=== PATIENT | female | born 1960 | race Caucasian/White ===

== ENCOUNTER 2016-06-30 16:28 | Observation (INO) | payer OTHER, SELFPAY ==
--- NOTE | ~2016-06-30 | DS ---
Discharge Summary [facility] [address] [facility] [place]. [address] NAME: JULIO GANDHI : 62 STATUS : DIS Estella PAT#: [id number] AGE: 56 ADM/REG DATE : 06/30/16 MR#: [id number] REPORT SERV DATE: 07/04/16 DICTATED BY: BESSIE ROSENBERG DATE: 07/03/16 REPORT STATUS : Draft TRANSCRIBED BY: MODL DATE: 07/03/16 ADMISSION DATE: 06/30/2016 DISCHARGE DATE: 07/03/2016 DIAGNOSES OF DISCHARGE: 1. Left knee pain with severe degenerative joint disease, osteoarthritis, deconditioning, and inability to walk. 2. Super morbid obesity. 3. Degenerative joint disease, osteoarthritis, status post prior bilateral total knee arthroplasty. 4. Chronic venous stasis dermatitis. 5. Hypertension. 6. Diabetes type 2, noninsulin dependent, diet controlled. 7. Depression with anxiety. 8. Polycystic ovarian syndrome. 9. Obesity hypoventilation syndrome. CONSULTANTS ON THE CASE: Dr. Sebastian Herzog, Orthopedic. PROCEDURES DONE DURING THIS HOSPITALIZATION: None. TESTS DONE DURING THIS HOSPITALIZATION: Include a chest x-ray, portable, on 06/30/2016 showing cardiomegaly. No acute abnormalities. Left knee x-ray did show prosthesis in the place, but no hardware removal. Also, the patient's UA has been negative. Her white count was normal with a white blood cell count of 8.4, hemoglobin 13.3, hematocrit 42.7, and platelets were 199. Her INR was 1.1. HOSPITAL COURSE: This is a 56 years old female, patient of Dr. Juan Fuchs, her primary care provider, she has history of hypertension, degenerative joint disease, osteoarthritis, obstructive sleep apnea, morbid obesity, she is very functional, admitting to [facility] for significant deconditioning, intractable left knee pain, and inability to ambulate. Again, she has been very limited in her activities due to her significant degenerative joint disease and osteoarthritis as well as morbid obesity. There were no fractures at diagnosis. Mostly, she has been having progressive deterioration of her functional status, minimally functioning, and very limited in her daily activities. She has been admitted to Hospitalist Service. An Orthopedic consult has been placed and she has been started to work with Physical Therapy. She has been seen in consult by Dr. Sebastian Herzog from Orthopedic Service, who concluded that she is not a candidate for orthopedic intervention. Recommendation for her was nonoperative intervention, exercise, physical therapy, and inpatient rehab. On 07/03/2016, the patient has been ready to be discharged to inpatient rehab. MEDICATIONS AT DISCHARGE: Include aspirin 81 p.o. daily, Parlodel 2.5 p.o. daily, Colace 100 b.i.d., insulin sliding scale level 1, meloxicam 7.5 p.o. daily, norethindrone 15 mg p.o. daily, nystatin powder apply topically three times a day, Prilosec 20 mg p.o. daily, MiraLAX one packet in 6 ounces of fluid p.o. daily, Zoloft 100 p.o. daily, albuterol q.4 hours while Discharge Summary [address] [address] NAME: JULIO GANDHI : 62 STATUS : DIS Estella PAT#: [id number] AGE: 56 ADM/REG DATE : 06/30/16 MR#: [id number] REPORT SERV DATE: 07/04/16 DICTATED BY: BESSIE ROSENBERG DATE: 07/03/16 REPORT STATUS : Draft TRANSCRIBED BY: CHAZ DATE: 07/03/16 awake and also albuterol p.r.n. twice a day, Tylenol 650 every four hours p.r.n. clorazepate 7.5 p.o. b.i.d. p.r.n., Benadryl p.r.n. at bedtime 50 mg p.o., glucose tablets, also Zofran p.r.n., Phenergan p.r.n., Ultram 50 mg p.o. q.6 hours p.r.n., and Diovan hydrochlorothiazide 160/12.5 one tablet p.o. daily. The patient has been advised to follow up with her primary care provider in one week after discharge. The patient has been accepted to go to inpatient rehab for aggressive physical therapy. DESTINY/CHAZ Bessie Rosenberg M.D. / [id number] CC: Sary Damon M.D.
--- NOTE | ~2016-06-30 | HP ---
History And Physical [address] [place]. [address] NAME: JULIO GANDHI : 62 STATUS : ADM Estella PAT#: [id number] AGE: 56 ADM/REG DATE : 06/30/16 MR#: [id number] REPORT SERV DATE: 07/02/16 DICTATED BY: MARGARITA PETE DATE: 07/02/16 REPORT STATUS : Draft TRANSCRIBED BY: MODL DATE: 07/02/16 DATE OF ADMISSION: 06/30/2016 CHIEF COMPLAINT: Left knee pain. HISTORY: This is a morbidly obese 56-year-old female admitted for multiple medical issues including increasing left knee pain and complete debilitation. She had a left total knee in 2008 and right total knee arthroplasty [place] [address] Epstein by her account. She was nurse for about 30 years now, morbidly obese and wheelchair bound, minimally functional, was admitted with severe deconditioning, urinating, and defecating on herself, etc. She reports three falls since August and was very detailed on her account. She has again been very limited in her activities with severe pain in the knee. No specific fracture of her diagnosis, etc. ALLERGIES: PENICILLIN, CODEINE, HYDROCODONE, AND ADHESIVE TAPE. MEDICATIONS: See chart. 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 PAST SURGICAL HISTORY: Knee replacements as noted. SOCIAL HISTORY: No cigarettes, alcohol, or illicit drug use. She basically does not get out and about hardly at all. FAMILY HISTORY: Noncontributory. REVIEW OF SYSTEMS: As noted above with severe deconditioning and debilitation. PHYSICAL EXAMINATION: GENERAL: She is morbidly obese. HEENT: Atraumatic and normocephalic. NECK: Supple. CHEST: Grossly appears symmetric. CV AND LUNG: Evaluation per Medicine. EXTREMITIES: Both upper extremities without acute trauma. Both lower extremities with severe super obesity in both thighs. Chronic venous stasis dermatitis. 1+ DP pulses. Moderate varus deformities. Extremely limited range of motion with pain, but also limited just due to the soft tissue size. She appears to be neurologically intact in both feet, sensory and motor. DIAGNOSTIC DATA: X-ray of the left knee reveals varus changes with severe poly wear. ASSESSMENT: Bilateral total knee arthroplasty, super morbid obesity, deconditioning, left varus wear in the knee. History And Physical [address] [place] [place]. [address] NAME: JULIO GANDHI : 62 STATUS : ADM Estella PAT#: [id number] AGE: 56 ADM/REG DATE : 06/30/16 MR#: [id number] REPORT SERV DATE: 07/02/16 DICTATED BY: MARGARITA PETE DATE: 07/02/16 REPORT STATUS : Draft TRANSCRIBED BY: CHAZ DATE: 07/02/16 PLAN: She is not a candidate for orthopedic intervention with her chronic yeast infections and super morbid obesity. I discussed with her I do not think a brace would help her either as it would have to be a custom brace and I was afraid it would cause her further skin irritation. We had a very lengthy discussion about nonoperative intervention, exercise, etc. I will be available to see her at some point in the future if her condition improves. She described in great detail how she is already plugged in with the Bariatric Services here. IBRAHIMAB/CHAZ Cyndy Pete M.D. / [id number] CC: Sary Damon M.D.
--- NOTE | ~2016-06-30 | HP ---
History And Physical [id number] [facility] [place]. [address] NAME: JULIO GANDHI : 62 STATUS : ADM Estella PAT#: [id number] AGE: 56 ADM/REG DATE : 06/30/16 MR#: [id number] REPORT SERV DATE: 07/01/16 DICTATED BY: FERNY PORRAS DATE: 06/30/16 REPORT STATUS : Draft TRANSCRIBED BY: MODL DATE: 06/30/16 DATE OF ADMISSION: 06/30/2016 CHIEF COMPLAINT: Failure to thrive. HISTORY OF PRESENT ILLNESS: This is a 56-year-old lady with super morbid obesity presenting with a failure to thrive. The patient has apparently been going from one ER to another ER because the patient has developed left knee pain that prevented her from being able to get up. The patient does have history of osteoarthritis and has had bilateral knee replacements. The patient reports that some time ago it buckling on her and she was really not able to ambulate. The patient is actually scheduled to see an orthopedist in three days on 07/03/2016. Unfortunately in the meantime, the patient has not been able to get up and go use the bathroom and thus she has been basically defecating and urinating on herself. The patient is super morbidly obese, and although at baseline the patient is able to get around with a walker with some help of her boyfriend, her boyfriend was not able to help her much because he is going through an illness himself too. The patient was seen at different ERs, and she would get discharged home. The patient now has developed a yeast infection in her skin folds from not being able to keep her skin folds clean. The patient came to our ER yet again for another evaluation. In the ER, the patient was found to be afebrile and hemodynamically stable. Initial lab evaluation was all completely benign with normal white blood cell count, normal renal function, normal electrolytes, and normal LFTs. Chest x-ray, urinalysis, and x-ray of the left knee were all very normal. Internal medicine consultation was requested to see if the patient can be admitted and see if there is any way to get her more help at home. REVIEW OF SYSTEMS: The patient denies any fevers or chills. Also, 14-point review of systems reviewed and negative other than mentioned above. MEDICATIONS: The list is still pending at this time. ALLERGIES: PENICILLINS. PAST MEDICAL HISTORY: 1. Super morbid obesity. 2. Diet-controlled diabetes. 3. Hypothyroidism. 4. GERD. 5. Osteoarthritis. 6. PCOS. 7. Obesity hypoventilation syndrome. 8. Mitral valve insufficiency. PAST SURGICAL HISTORY: Bilateral knee replacements. History And Physical [address] [address] NAME: JULIO GANDHI : 62 STATUS : ADM Estella PAT#: [id number] AGE: 56 ADM/REG DATE : 06/30/16 MR#: [id number] REPORT SERV DATE: 07/01/16 DICTATED BY: FERNY PORRAS DATE: 06/30/16 REPORT STATUS : Draft TRANSCRIBED BY: CHAZ DATE: 06/30/16 FAMILY HISTORY: 1. Heart diseases. 2. Lung diseases. SOCIAL HISTORY: The patient does not smoke, drink alcohol, or use any illicit drugs. The patient lives at home with her boyfriend. The patient is currently on disability. PHYSICAL EXAMINATION: VITAL SIGNS: Temperature 98.3, blood pressure 174/81, pulse 85, respiratory rate is 16, and saturating 94% on room air. NEUROLOGIC: The patient is alert and oriented x3 with no focal neurologic deficits. GENERAL: The patient is awake, does not appear to be in acute distress, and she is cooperative. NECK: No JVD. No lymphadenopathy. Normal thyroid. CHEST: No midline sternotomy scar and no tenderness to palpation. Lungs are clear to auscultation bilaterally but very limited exam due to the patient's body habitus. The patient is on 2 L of oxygen here in the ER, and the patient does appear to get short of breath with minimal exertion. CARDIOVASCULAR: Regular rate and rhythm with no murmurs, rubs, or gallops, and PMI is nondisplaced. ABDOMEN: Soft and nontender with active bowel sounds with no organomegaly. EXTREMITIES: No edema. Normal distal pulses. No calf tenderness. SKIN: Clean, dry, warm, and intact. LABORATORY DATA: Sodium is 141, potassium 4.0, chloride 101, BUN 12, creatinine 0.65, glucose 95, and calcium is 8.6. LFTs are within normal limits. White blood cell count 7.8, hemoglobin 14.2, and platelets 215. INR is 1.1. Urinalysis is negative. Chest x-ray is personally interpreted and it is nonacute. X-ray of the left knee was also nonacute. ASSESSMENT: This is a 56-year-old lady with super morbid obesity presenting with a failure to thrive. 1. Super morbid obesity. 2. Left knee pain and inability to mobilize herself. The patient has been defecating and urinating on herself at home. 3. Failure to thrive as mentioned above. 4. Superficial groin yeast infections. 5. Obesity hypoventilation syndrome and likely obstructive sleep apnea. 6. Hypertension. 7. Diet-controlled diabetes type 2. 8. Gastroesophageal reflux disease. PLAN: Our plan is to admit the patient for observation overnight. The patient will be monitored on the telemetry. I think the most important thing at this point in time is to get Case Management involved and see if she can get additional help at home as all of her presenting problems seem to be somewhat chronic and related to the morbid obesity and nothing really acute and requires inpatient treatment. The patient already has an orthopedic appointment on 07/03/2016 this coming for the left-sided knee pain. The History And Physical [address] [address] NAME: JULIO GANDHI : 62 STATUS : ADM Estella PAT#: [id number] AGE: 56 ADM/REG DATE : 06/30/16 MR#: [id number] REPORT SERV DATE: 07/01/16 DICTATED BY: FERNY PORRAS DATE: 06/30/16 REPORT STATUS : Draft TRANSCRIBED BY: CHAZ DATE: 06/30/16 patient will be under fall precautions, and I will have physical therapy come and help her ambulate. For the yeast infections, the patient was simply given topical nystatin. For the obesity hypoventilation and obstructive sleep apnea, the patient will be given oxygen support and bronchodilator therapies as needed. The rest of stable past medical conditions, including hypertension, diabetes, GERD, et al., I will continue home medications. Standard DVT prophylaxis. The patient is full code at this time. BONNIE/CHAZ Ferny Porras MD / [id number] CC: Sary Jay M.D.
[2016-06-30 18:47] LABS: BASOPHILS 0.1 %; BASOPHILS ABSOLUTE 0.01 10/3/uL (0.0-0.16); EOSINOPHILS 5.6 %; EOSINOPHILS ABSOLUTE 0.44 10/3/uL (0.0-0.53); HEMATOCRIT 45.3 % (36.0-48.0); HEMOGLOBIN 14.2 g/dL (12.0-16.0); IMMATURE GRANULOCYTES 0.3 %; IMMATURE GRANULOCYTES ABSOLUTE 0.02 10/3/uL (0.0-0.11); LYMPHOCYTES 18.5 %; LYMPHOCYTES ABSOLUTE 1.45 10/3/uL (0.67-4.30); MEAN CORPUS HGB CONC 31.3 g/dL (32.0-36.0); MEAN CORPUSCULAR HEMOGLOB 30.1 pg (26.0-34.0); MEAN PLATELET VOLUME 10.1 fL (9.2-13.0); MONOCYTES 6.4 %; NEUTROPHILS 69.1 %; NEUTROPHILS ABSOLUTE 5.41 10/3/uL (2.02-8.40); PLATELET COUNT 215 10/3/uL (150-400); RBC DISTRIBUTION WIDTH 13.9 % (12.0-16.0); RED CELL COUNT 4.72 10/6/uL (4.0-5.6); WHITE BLOOD CELLS 7.8 10/3/uL (4.5-10.5)
[2016-06-30 18:53] LABS: INTERNATIONAL NORMAL RATI 1.1 UNITS (-); PROTIME (NOT ORD) 14.3 SEC (12.0-14.5)
[2016-06-30 18:56] LABS: MANUAL DIFF NO %
[2016-06-30 19:01] LABS: ALKALINE PHOSPHATASE 39 U/L (45-117); BUN (BLOOD UREA NITROGEN) 12 MG/DL (6-23); CALCIUM, SERUM 8.6 MG/DL (8.5-10.4); CHLORIDE, SERUM 101 MMOL/L (96-112); CREATININE 0.65 MG/DL (0.55-1.02); GFR AFRICAN AMERICAN 116 ML/MIN (>=60); GFR NON AFRICAN AMERICAN 100 ML/MIN (>=60); GLUCOSE, SERUM 95 MG/DL (60-99); SGOT(AST) 30 U/L (5-40); SGPT(ALT) 41 U/L (5-65); SODIUM, SERUM 141 MMOL/L (135-148); TOTAL BILIRUBIN 0.5 MG/DL (0-1.2); TOTAL PROTEIN 7.4 G/DL (6.0-8.5)
[2016-06-30 19:02] LABS: A/G RATIO 0.6 (0.7-1.9); ALBUMIN 2.9 G/DL (3.5-5.0); CO2 (CARBON DIOXIDE) 33 MMOL/L (24-34); GLOBULIN 4.5 G/DL (2.5-4.1)
[2016-06-30 19:14] LABS: ASCORBIC ACID (UR NOT ORDER) NEG (NEG); BILIRUBIN, URINE NEGATIVE (NEG); ER URINALYSIS TAT 0 Hrs 12 Mins; KETONE, URINE NEGATIVE (NEG); LEUKOCYTE ESTERASE(NOT OR NEG (NEG); NITRITE (URINE) NEG (NEG); WBC (NOT ORDERED) (RFLEX) 1 (0-5)
[2016-06-30] MEDS ORDERED: DIOVAN HC1 PO (19:43)
[2016-06-30] MEDS ORDERED: ASAB PO (19:44)
[2016-06-30] MEDS ORDERED: PRILO PO (19:44)
[2016-06-30] MEDS ORDERED: MOBIC7.5 PO (19:44)
[2016-06-30] MEDS ORDERED: ZOL100 PO (19:44)
[2016-06-30] MEDS ORDERED: BEN25 PO (19:44)
[2016-06-30] MEDS ORDERED: AYGESTIN5 MG PO (19:45)
[2016-06-30] MEDS ORDERED: [UNRECOGNIZED DRUG - CODE] PO (19:45)
[2016-06-30] MEDS ORDERED: VENTOLIN HFA INH (19:46)
[2016-06-30] MEDS ORDERED: PR25 PO (19:46)
[2016-06-30] MEDS ORDERED: TRANXENE 7.5 M7.5 MG PO (19:46)
[2016-07-01 05:20] LABS: BASOPHILS 0.1 %; BASOPHILS ABSOLUTE 0.01 10/3/uL (0.0-0.16); EOSINOPHILS 4.8 %; HEMATOCRIT 42.7 % (36.0-48.0); HEMOGLOBIN 13.3 g/dL (12.0-16.0); IMMATURE GRANULOCYTES 0.4 %; IMMATURE GRANULOCYTES ABSOLUTE 0.03 10/3/uL (0.0-0.11); LYMPHOCYTES 16.9 %; LYMPHOCYTES ABSOLUTE 1.42 10/3/uL (0.67-4.30); MEAN CORPUS HGB CONC 31.1 g/dL (32.0-36.0); MEAN CORPUSCULAR HEMOGLOB 29.8 pg (26.0-34.0); MEAN CORPUSCULAR VOLUME 95.5 fL (80-100); MEAN PLATELET VOLUME 10.3 fL (9.2-13.0); MONOCYTES 5.8 %; MONOCYTES ABSOLUTE 0.49 10/3/uL (0.21-1.20); NEUTROPHILS ABSOLUTE 6.05 10/3/uL (2.02-8.40); PLATELET COUNT 199 10/3/uL (150-400); RED CELL COUNT 4.47 10/6/uL (4.0-5.6); WHITE BLOOD CELLS 8.4 10/3/uL (4.5-10.5)
[2016-07-01 05:21] LABS: MANUAL DIFF NO %
[2016-07-01 05:37] LABS: BUN (BLOOD UREA NITROGEN) 12 MG/DL (6-23); CALCIUM, SERUM 8.5 MG/DL (8.5-10.4); CHLORIDE, SERUM 103 MMOL/L (96-112); CO2 (CARBON DIOXIDE) 31 MMOL/L (24-34); CREATININE 0.56 MG/DL (0.55-1.02); GFR AFRICAN AMERICAN 122 ML/MIN (>=60); GFR NON AFRICAN AMERICAN 105 ML/MIN (>=60); GLUCOSE, SERUM 97 MG/DL (60-99); SODIUM, SERUM 140 MMOL/L (135-148)
[2016-07-02 06:52] LABS: CALCIUM, SERUM 8.8 MG/DL (8.5-10.4); CHLORIDE, SERUM 100 MMOL/L (96-112); CO2 (CARBON DIOXIDE) 33 MMOL/L (24-34); CREATININE 0.46 MG/DL (0.55-1.02); GFR AFRICAN AMERICAN 130 ML/MIN (>=60); GFR NON AFRICAN AMERICAN 112 ML/MIN (>=60); GLUCOSE, SERUM 105 MG/DL (60-99); POTASSIUM, SERUM 4.5 MMOL/L (3.5-5.3); SODIUM, SERUM 141 MMOL/L (135-148)
[2016-07-02 06:53] LABS: BUN (BLOOD UREA NITROGEN) 8 MG/DL (6-23)
[2016-07-03 06:10] LABS: BUN (BLOOD UREA NITROGEN) 10 MG/DL (6-23); CALCIUM, SERUM 9.1 MG/DL (8.5-10.4); CHLORIDE, SERUM 98 MMOL/L (96-112); CO2 (CARBON DIOXIDE) 35 MMOL/L (24-34); CREATININE 0.56 MG/DL (0.55-1.02); GFR AFRICAN AMERICAN 122 ML/MIN (>=60); GFR NON AFRICAN AMERICAN 105 ML/MIN (>=60); GLUCOSE, SERUM 98 MG/DL (60-99); POTASSIUM, SERUM 4.7 MMOL/L (3.5-5.3); SODIUM, SERUM 139 MMOL/L (135-148)
== END 2016-07-03 17:40 ==
LOC: ER 16:28 → 5NO 21:36
PROVIDERS: Emergency Medicine; Internal Medicine
DX: M17.9 Osteoarthritis of knee, unspecified (principal); E66.2 Morbid (severe) obesity with alveolar hypoventilation; I10 Essential (primary) hypertension; R62.7 Adult failure to thrive; K21.9 Gastro-esophageal reflux disease without esophagitis; E28.2 Polycystic ovarian syndrome; E11.9 Type 2 diabetes mellitus without complications; I87.2 Venous insufficiency (chronic) (peripheral); E03.9 Hypothyroidism, unspecified; F41.8 Other specified anxiety disorders; Z88.0 Allergy status to penicillin; Z88.5 Allergy status to narcotic agent; Z88.8 Allergy status to other drugs, medicaments and biological substances; Z96.653 Presence of artificial knee joint, bilateral; Z98.890 Other specified postprocedural states; Z79.82 Long term (current) use of aspirin; Z79.899 Other long term (current) drug therapy; Z23 Encounter for immunization
CPT/HCPCS: 71010; 73560-LT; 80048; 80053; 81001; 82962; 83735; 85025; 85610; 90686; 93005; 94640; 96372; 97162-GP; 97530-GP; 99285; A9270-GY; G0008; G0378